=== PATIENT | female | born 1960 | race Caucasian/White ===

== ENCOUNTER → 2017-09-28 09:15 | Outpatient (REF) | payer BC, SELFPAY ==
[2017-09-28 14:13] LABS: Cholesterol 115 mg/dL (50-200); HDL Cholesterol 46 mg/dL (40-60); LDL CHOLESTEROL 56 mg/dL (<100); Triglyceride 81 mg/dL (30-150)
== END ==
LOC: NCHCN 09:15
PROVIDERS: PCP Internal Medicine; Visit Provider Internal Medicine
DX: E78.5 Hyperlipidemia, unspecified (principal)
CPT/HCPCS: 80061; 83721

== ENCOUNTER 2018-04-08 18:23 | Outpatient (REF) | payer BC, SELFPAY ==
[2018-04-08 21:57] LABS: Anion Gap 8.5 mmol/L (3-11); BUN 25 mg/dL (7-18); CO2 28.5 mmol/L (21.0-32.0); CREATININE 1.01 mg/dL (0.55-1.02); Calcium 9.2 mg/dL (8.5-10.1); Chloride 102 mmol/L (98-107); Glucose 374 mg/dL (70-100); Potassium 4.8 mmol/L (3.5-5.1); Sodium 139 mmol/L (136-145)
== END 2018-04-08 18:43 ==
LOC: NCHCN 18:23
PROVIDERS: PCP Internal Medicine; Visit Provider Internal Medicine
DX: I10 Essential (primary) hypertension (principal); E11.65 Type 2 diabetes mellitus with hyperglycemia
CPT/HCPCS: 80048

== ENCOUNTER 2018-05-11 01:14 | Outpatient (CLI) | payer SELFPAY ==
--- NOTE | 2018-05-11 09:00 | DIABASSESS_ITS ---
DESCRIPTION: Mariella Parks presents for CGM (continuous glucose monitor) Professional trial. She currently wears a Minimed insulin pump and tests her blood sugars frequently. States blood sugars are high for past few months. Her PCP suggested a trial with the CGM. ASSESSMENT/INTERVENTION: Mariella is informed of the process, limitations and benefits of CGM and she agrees to go forward with insertion. Agreement signed. Dexcom 4 Professional CGM is inserted without difficulty per protocol. She has charts to document insulin, blood sugars and food. PLAN: She will return in 1 week for removal and printing of results. She knows how to contact us with any questions or concerns regarding her CGM.
== END 2018-05-11 01:34 ==
PROVIDERS: PCP Internal Medicine; Visit Provider Dietitian, Registered
DX: E11.9 Type 2 diabetes mellitus without complications (principal); Z79.4 Long term (current) use of insulin; Z71.3 Dietary counseling and surveillance
CPT/HCPCS: 95250

== ENCOUNTER 2018-09-13 13:00 | Outpatient (REF) | payer BC, SELFPAY ==
[2018-09-13 21:28] LABS: Bilirubin Negative (Negative); Blood Large (Negative); Clarity Clear (Clear); Glucose Negative (Negative); Ketones Negative (Negative); Leukocyte Esterase Moderate (Negative); Nitrite Negative (Negative); Specific Gravity 1.015 (1.005-1.025)
[2018-09-13 21:44] LABS: HCT 44.1 % (36.0-46.0); HGB 13.7 g/dL (12.0-15.5); Mean Corp. HGB Concentration 31.1 g/dL (32.0-36.0); Mean Corpuscular Hemoglobin 31.1 pg (27.0-33.0); Platelet Count 270 x1000/uL (130-400); RBC 4.41 m/cumm (4.00-5.20); RBC Distribution Width 14.3 % (11.7-14.6); White Blood Cell Count 8.92 k/cumm (4.4-10.8)
[2018-09-13 21:57] LABS: Epithelial Cells Many HPF (Negative); RBC 20-50 (0-2); WBC >50 HPF (0-5)
[2018-09-13 21:58] LABS: Bacteria Many HPF (Negative); C & S Indicated? No/Sq. Contamination; Casts Negative LPF (Negative); Crystals Negative HPF (Negative); Mucus Negative (Negative); Other Cells Negative (Negative)
[2018-09-13 22:07] LABS: ALT 31 U/L (12-78); AST 16 U/L (15-37); Albumin 3.1 g/dL (3.4-5.0); Alkaline Phosphatase 94 U/L (46-116); Anion Gap 7.8 mmol/L (3-11); BUN 21 mg/dL (7-18); Bilirubin, Total 0.3 mg/dL (0.2-1.0); CO2 32.2 mmol/L (21.0-32.0); CREATININE 1.13 mg/dL (0.55-1.02); Calcium 9.1 mg/dL (8.5-10.1); Chloride 105 mmol/L (98-107); Creatine Kinase 36 U/L (26-192); Estimated GFR 49.46 (mL/min/1.73m2); Glucose 145 mg/dL (70-100); NT-proBNP 603 pg/mL; Potassium 4.7 mmol/L (3.5-5.1); Sodium 145 mmol/L (136-145); Total Protein 6.3 g/dL (6.4-8.2)
== END 2018-09-13 13:20 ==
LOC: NCHCN 13:00
PROVIDERS: PCP Internal Medicine; Visit Provider Internal Medicine
DX: I50.9 Heart failure, unspecified (principal); R31.9 Hematuria, unspecified
CPT/HCPCS: 80053; 82550; 85027; 81003; 81015; 83880

== ENCOUNTER 2018-09-14 12:21 | Outpatient (CLI) | payer BC, SELFPAY ==
--- NOTE | 2018-09-14 11:02 | DI.RAD_ITS ---
SYMPTOMS/DIAGNOSIS: HYPOXEMIA, SOB, CHF, R09.02, R06.02, I50.9 PA AND LATERAL CHEST: Comparison 02/26/16. The heart appears enlarged. There is prominence of the pulmonary vasculature with prominent interstitial infiltrates. No focal consolidating infiltrate is seen. No gross effusions are appreciated. Degenerative changes are seen in the spine. IMPRESSION: Cardiomegaly. Pulmonary venous congestion and interstitial prominence. The findings of suggestive of interstitial edema/CHF.
== END 2018-09-14 12:41 ==
PROVIDERS: PCP Internal Medicine; Visit Provider Internal Medicine
DX: R06.02 Shortness of breath (principal); I50.9 Heart failure, unspecified; R09.02 Hypoxemia; I51.7 Cardiomegaly
CPT/HCPCS: 71046

== ENCOUNTER 2018-09-15 00:57 | Outpatient (CLI) | payer BC, SELFPAY ==
--- NOTE | 2018-09-15 14:09 | DI.US_ITS ---
SYMPTOMS/DIAGNOSIS: GROSS HEMATURIA, N31.9 RENAL ULTRASOUND: The right kidney measures 11.3 cm and there is an apparent lower pole calculus measuring approximately 6 x 7 mm. The left kidney measures 11.6 cm and there is a region of reflectivity which would be consistent with a 7 x 5 mm calculus. There is no evidence of right or left hydronephrosis. The bladder is not distended. SUMMARY: Findings consistent with bilateral nephrolithiasis. There is no evidence of hydronephrosis. The study is limited due to the patient's body habitus and if there is any further clinical question, then further assessment with CT is suggested.
== END 2018-09-15 01:17 ==
PROVIDERS: PCP Internal Medicine; Visit Provider Internal Medicine
DX: N31.9 Neuromuscular dysfunction of bladder, unspecified (principal); N20.0 Calculus of kidney
CPT/HCPCS: 76770

== ENCOUNTER 2018-10-07 08:02 | Outpatient (CLI) | payer BC, SELFPAY | END 2018-10-07 08:22 | PROVIDERS: PCP Internal Medicine; Visit Provider Internal Medicine | DX: E27.8 Other specified disorders of adrenal gland (principal) | CPT/HCPCS: 36415; 82533 ==

== ENCOUNTER 2019-01-17 15:13 | Outpatient (REF) | payer BC, SELFPAY | END 2019-01-17 15:33 | LOC: NCHCN 15:13 | PROVIDERS: PCP Internal Medicine; Visit Provider Internal Medicine | DX: R31.9 Hematuria, unspecified (principal) | CPT/HCPCS: 87086 ==

== ENCOUNTER 2019-03-11 11:47 | Outpatient (REF) | payer BC, SELFPAY ==
[2019-03-11 20:25] LABS: HCT 45.9 % (36.0-46.0); HGB 14.7 g/dL (12.0-15.5); Mean Corpuscular Hemoglobin 31.5 pg (27.0-33.0); Mean Corpuscular Volume 98.3 fL (80-95); Mean Platelet Volume 10.5 fL (8.0-11.0); Platelet Count 297 x1000/uL (130-400); RBC 4.67 m/cumm (4.00-5.20); RBC Distribution Width 13.3 % (11.7-14.6); White Blood Cell Count 8.79 k/cumm (4.4-10.8)
[2019-03-11 21:07] LABS: Anion Gap 8.9 mmol/L (3-11); BUN 25 mg/dL (7-18); CO2 31.1 mmol/L (21.0-32.0); Calcium 9.4 mg/dL (8.5-10.1); Chloride 102 mmol/L (98-107); Estimated GFR 45.98 (mL/min/1.73m2); Glucose 137 mg/dL (74-106); Sodium 142 mmol/L (136-145); Vitamin B12 541 pg/mL (193-986)
== END 2019-03-11 12:07 ==
LOC: NCHCN 11:47
PROVIDERS: PCP Internal Medicine; Visit Provider Internal Medicine
DX: D75.89 Other specified diseases of blood and blood-forming organs (principal); E08.3 Diabetes mellitus due to underlying condition with ophthalmic complications
CPT/HCPCS: 80048; 85027; 82607

== ENCOUNTER 2019-12-17 17:05 | Observation (INO) | payer BC, SELFPAY ==
[2019-12-17] VITALS (30 sets, daily range): BP systolic 120–187; BP diastolic 72–137; PULSE 103–146; RESP 13–29; TEMP 36.3–36.4; O2SAT 94–98
--- NOTE | 2019-12-17 17:00 | DI.CT_ITS ---
EXAM: CT HEAD CERVICAL SPINE WO CLINICAL HISTORY: L weakness, slurred speech. TECHNIQUE: Imaging Protocol: Axial computed tomography images with coronal and sagittal reformatted images were created and reviewed COMPARISON: No exams were available for comparison FINDINGS: CT Head: Ventricles and Extra axial spaces: Normal in size and morphology for the patient's age. Hemorrhage: None. Cerebral parenchyma: There is an area of encephalomalacia in the left occipital lobe. No acute caryl torial infarct. Midline shift: None. Brainstem/Cerebellum: Normal. Calvarium: Normal. Visualized Paranasal sinuses/Mastoids: Clear. Soft Tissues: Unremarkable. CT Cervical Spine: The examination is limited due to patient motion artifact. Bones: No acute fracture or subluxation. There is straightening of the normal cervical lordosis. Soft Tissues: Unremarkable. Lung Apices: Clear. IMPRESSION: 1. No acute intracranial process. 2. No acute fracture or subluxation in the cervical spine. RADIATION DOSE DELIVERED: 1,653.72mGy.cm Total DLP DATA REPOSITORY: All CT scans at this facility are submitted to the National Radiology Data Registry (NRDR) Dose Index Registry (DIR) with the [employer] (ACR). RADIATION OPTIMIZATION: All CT scans at this facility use at least one of these dose optimization te chniques: automated exposure control; mA and/or kV adjustment per patient size (includes targeted exa ms where dose is matched to clinical indication); or iterative reconstruction.
--- NOTE | 2019-12-17 17:00 | RT.EKG_ITS ---
APPROVED REPORT Exam: Resting ECG Patient Location: E HR:105 bpm ECG Measurements Heart Rate 105 AXIS GA 132 P 63 QRSd 111 QRS 45 QT 343 T 30 QTc 454 Conclusion Sinus tachycardia rate> 99 Ventricular premature complex. Inferior infarct, old.
--- NOTE | 2019-12-17 17:00 | DI.RAD_ITS ---
EXAM: XR CHEST 1V IN DI DEPT CLINICAL HISTORY: hemiparesis TECHNIQUE: 2D digital imaging was performed. COMPARISON: CR XR CHEST 2V PA LATERAL from 09/14/2018 FINDINGS: MEDIASTINUM: Normal. HEART: Normal. PULMONARY VASCULATURE: Normal. LUNGS: There is blunting of the left costophrenic angle. This may represent a small effusion and/or infiltrate. PLEURAL SPACE: No pleural effusion or pneumothorax. BONE:Within normal limits for the patient's age. OTHER FINDINGS:Normal. IMPRESSION: Blunting of the left costophrenic angle. This may represent a small effusion and/or infiltrate. DATA REPOSITORY: RADIATION DOSE DELIVERED:
--- NOTE | 2019-12-17 17:14 | ED.GENADUL_ITS ---
Discharge Plan Disposition Patient Disposition: [facility] INPATIENT Condition: Stable Discharge Details Clinical Impression: CVA (cerebral vascular accident) Primary Care Provider: Gaston Castro ED Provider: Gerson Roberts Home Meds and New Rx's Prescriptions: No Action insulin aspart U-100 [Novolog U-100 Insulin aspart] 100 UNIT/1 ML solution RF: 0 pravastatin 20 MG tablet 20 mg PO DAILY RF: 0 lamotrigine 150 MG tablet 0.5 tab PO DAILY RF: 0 zonisamide 100 MG capsule 100 mg PO DAILY RF: 0 gabapentin 300 MG capsule 300 mg PO TID RF: 0 Medical Decision Making 59-year-old female who was last known well prior to 2 PM. She states she got out of the shower, felt her left arm was clumsy and unable to place a brace on her right arm. She then started to walk and with her weakness of the left leg fell forward and struck her head on the carpeted ground without loss of consciousness. A neighbor and subsequently a family member were called, were concerned for possibility of stroke and EMS was called. Repeat history taken from family notes that the symptoms began sometime after noon. Patient has history of TIA in the past. She has history of hypertension diabetes as well as seizure disorder. Glucose is approximately 288 on route via EMS. She arrives interactive and speaking with left arm and leg weakness. She is able to move against gravity but not against resistance. Right side is un remarkable. NIH stroke scale approximately 3-4. Referred for stat noncontrast CT scan of the head as well as cervical spine given her fall with axial/extension load. Her tetanus was out of date and was updated in the ED. CT scan: No acute fracture or subluxation of the cervical spine. CT of the brain without acute intracranial abnormality. See formal report. Labs: White blood cell count 11, hematocrit 47, platelets 284. BUN 41, creatinine 1.3, increased over baseline. Glucose 246. Troponin negative. Given the patient's relative contraindication of frontal head trauma, no clear last known normal, as well as relatively low NIH stroke scale, I do not feel she is a candidate for thrombolysis. Reviewed records including [facility] neurology clinic on April 2013. This notes history of epilepsy, TIAs. She will require admission for further management. Lab Data Lab results reviewed: Yes I reviewed the patient's lab results. Labs: Laboratory Results - last 24 hr 12/17/19 12/17/19 16:35 16:35 WBC 11.05 H RBC 4.83 Hgb 15.4 Hct 47.7 H MCV 98.8 H MCH 31.9 MCHC 32.3 RDW 12.7 Plt Count 284 MPV 10.3 Immature Gran % 0.5 Neutrophils % 76.4 Lymphocytes % 14.1 Monocytes % 7.3 Eosinophils % 1.3 Basophils % 0.4 Nucleated RBC % 0 Absolute Neutrophils 8.44 H Absolute Lymphocytes 1.56 Absolute Monocytes 0.81 H Absolute Eosinophils 0.14 Absolute Basophils 0.04 Sodium 137 Potassium 3.8 Chloride 99 Carbon Dioxide 30.2 Anion Gap 7.8 BUN 41 H Creatinine 1.31 H Estimated GFR/1.73 m2 41.56 Glucose 246 H Calcium 10.1 Magnesium 2.2 Total Bilirubin 0.4 AST 17 ALT 40 Alkaline Phosphatase 90 Troponin I < 0.05 Total Protein 8.0 Albumin 4.1 HPI General Mode of arrival: EMS . Date/Time Provider Initiated Documentation: 12/17/19 17:26 . Limitations to Documentation: no limitations . Information obtained by: patient and EMS . History of Present Illness 59 year old F presents to the emergency department with the chief complaint of Left arm weakness at home prior to 2 PM, described as moderate, Quality is described as constant, and is localized to the left and upper extremity. Patient started experiencing this hour(s) and it has been constant. No relieving factors improve symptom(s), No exacerbating factors reported . Patient notes other (Mild slurred speech, mild left leg weakness, frontal forehead trauma). Patient did receive the following treatments prior to arrival, none Related Data Home Medications Medication Instructions Recorded Confirmed insulin aspart U-100 [Novolog Vial] 05/22/14 pravastatin 20 mg PO DAILY tab-cap 05/22/14 12/17/19 gabapentin 300 mg PO TID 01/25/16 12/17/19 lamotrigine 0.5 tab PO DAILY 01/25/16 12/17/19 zonisamide 100 mg PO DAILY 01/25/16 12/17/19 Allergies Allergy/AdvReac Type Severity Reaction Status Date / Time No Known Allergies Allergy Unverified 12/17/19 17:19 Review of Systems Narrative: Noticed left arm clumsiness while getting out of shower. Her left leg was weak and she then fell forward and struck her head on the carpeted ground without loss of consciousness. 8 systems reviewed and otherwise negative. [facility] Social History Smoking/Tobacco Use Status: Former Tobacco Use Smoking risk assessment performed?: Yes Drug use: Never Do you feel safe in your relationship?: Yes Exam Narrative Exam Narrative: GEN: awake, alert, oriented 3. Pleasant, well groomed, interactive. HEAD: Normocephalic, abrasion to forehead and nasal bridge ENT: No midface instability or tenderness. Mucous membranes moist, oropharynx unremarkable, External ear exam unremarkable EYES: PERRL, EOMI NECK: Full ROM, no DESEAN, no menigismus CHEST/RESP: Nontender, clear to auscultation bilateral, no wheeze/rhonchi/rales CARDIOVASCULAR: RRR, no murmur, rub jaquan. 2+ Rad pulse bilateral ABDOMEN: Soft, nontender, no mass. +Bowel sounds EXT: Full ROM, no edema, no rash Neuro: Patient able to lift left arm and leg against gravity, but not against resistance. Positive pronator drift on the left. Slight slurred speech. Psych: Speech fluent with discrete slurred words at times, thoughts congruent, affect normal
[2019-12-17 17:26] LABS: Abs Immature Grans 0.05 10^3/uL (0.0-0.06); Absolute Basophil Count 0.04 10^3/uL (0.0-0.2); Absolute Eosinophil Count 0.14 10^3/uL (0.0-0.7); Absolute Lymphocyte Count 1.56 10^3/uL (1.2-3.4); Absolute Monocyte Count 0.81 10^3/uL (0.1-0.8); Basophils % 0.4; Eosinophils % 1.3; HCT 47.7 % (36.0-46.0); HGB 15.4 g/dL (11.2-15.7); Immature Grans % 0.5; Lymphocytes % 14.1; MCH 31.9 pg (27.0-33.0); MCHC 32.3 % (32.0-36.0); MCV 98.8 fL (80-95); MPV 10.3 fL (8.0-11.0); Monocytes % 7.3; Neutrophils % 76.4; Nucleated RBC 0 %; Platelet Count 284 10^3/uL (130-400); RBC 4.83 10^6/uL (3.93-5.22); RDW 12.7 % (11.7-14.6); RDW-SD 45.9 fL; WBC 11.05 10^3/uL (4.4-10.8)
[2019-12-17 17:28] LABS: Absolute Neutrophil Count 8.44 10^3/uL (1.2-6.7)
[2019-12-17] MEDS: Tetanus & Diphtheria Tox,ADULT 0.5 ML VIAL IM (17:45)
[2019-12-17] MEDS: Normal Saline 1,000 ML 150 ML IV (17:48)
[2019-12-17 17:49] LABS: ALT 40 U/L (14-59); AST 17 U/L (15-37); Albumin 4.1 g/dL (3.4-5.0); Alkaline Phosphatase 90 U/L (46-116); Anion Gap 7.8 mmol/L (3-11); BUN 41 mg/dL (7-18); Bilirubin, Total 0.4 mg/dL (0.2-1.0); CO2 30.2 mmol/L (21.0-32.0); CREATININE 1.31 mg/dL (0.55-1.02); Calcium 10.1 mg/dL (8.5-10.1); Chloride 99 mmol/L (98-107); Estimated GFR 41.56 (mL/min/1.73m2); Glucose 246 mg/dL (74-106); Magnesium 2.2 mg/dL (1.8-2.4); Potassium 3.8 mmol/L (3.5-5.1); Sodium 137 mmol/L (136-145); Troponin I < 0.05 ng/mL (<0.06)
--- NOTE | 2019-12-17 17:52 | DI.VRAD_ITS ---
PROCEDURE INFORMATION: Exam: CT Head Without Contrast Exam date and time: 12/17/2019 5:24 PM Age: 59 years old Clinical indication: Other: Hemiparesis, left weakness, slurred speech; Other: Fall TECHNIQUE: Imaging protocol: Computed tomography of the head without contrast. COMPARISON: No relevant prior studies available. FINDINGS: Brain: Mckeon-white matter differentiation is normal. There is no mass effect or midline shift. There is no intra-axial hemorrhage. There is parenchymal volume loss with compensatory dilatation of ventricles, sulci and basilar cisterns. There is no extra-axial fluid collection. Cerebral ventricles: No ventriculomegaly. Bones/joints: Unremarkable. No acute fracture. Paranasal sinuses: Visualized sinuses are unremarkable. No fluid levels. Mastoid air cells: Visualized mastoid air cells are well aerated. Soft tissues: Unremarkable. IMPRESSION: No acute intracranial abnormality. PROCEDURE INFORMATION: Exam: CT Cervical Spine Without Contrast Exam date and time: 12/17/2019 5:24 PM Age: 59 years old Clinical indication: Other: Hemiparesis, left weakness, slurred speech; Other: Fall TECHNIQUE: Imaging protocol: Computed tomography images of the cervical spine without contrast. Radiation optimization: All CT scans at this facility use at least one of these dose optimization techniques: automated exposure control; mA and/or kV adjustment per patient size (includes targeted exams where dose is matched to clinical indication); or iterative reconstruction. COMPARISON: No relevant prior studies available. FINDINGS: Vertebrae: There is straightening of cervical lordosis. There is no acute fracture or subluxation. Craniocervical junction is normal. There is normal alignment. Vertebral body heights are maintained. Facets are normally located. C2-C3: No significant disc protrusion. No severe spinal canal stenosis. No significant neural foraminal narrowing. C3-C4: No significant disc protrusion. No severe spinal canal stenosis. No significant neural foraminal narrowing. C4-C5: No significant disc protrusion. No severe spinal canal stenosis. No significant neural foraminal narrowing. C5-C6: No significant disc protrusion. No severe spinal canal stenosis. No significant neural foraminal narrowing. C6-C7: No significant disc protrusion. No severe spinal canal stenosis. No significant neural foraminal narrowing. C7-T1: No significant disc protrusion. No severe spinal canal stenosis. No significant neural foraminal narrowing. Other bones/joints: Posterior elements are intact. Soft tissues: Unremarkable. Lungs: Lung apices are normal. Other findings: Intervertebral disc spaces are normal. IMPRESSION: No acute fracture or subluxation. Dictated and Authenticated by: Cuco Salas MD. Ordering:PERFECTO Nieto MD
--- NOTE | 2019-12-17 17:57 | DI.VRAD_ITS ---
PROCEDURE INFORMATION: Exam: XR Chest, 1 View Exam date and time: 12/17/2019 5:35 PM Age: 59 years old Clinical indication: Other: Hemiparesis TECHNIQUE: Imaging protocol: XR of the chest Views: 1 view. COMPARISON: No relevant prior studies available. FINDINGS: Lungs: Unremarkable. No consolidation. Pleural space: Small left pleural effusion with atelectasis or consolidation in the left costophrenic angle. Heart/Mediastinum: Unremarkable. No cardiomegaly. Bones/joints: Unremarkable. IMPRESSION: Small left pleural effusion with atelectasis or consolidation in the left costophrenic angle. Dictated and Authenticated by: Gillian Maria MD. Ordering:PERFECTO Nieto MD
[2019-12-17] MEDS: Aspirin 325 MG TAB PO (18:37)
--- NOTE | 2019-12-17 19:39 | W.PM.HP.N ---
Date of service: 12/17/19 Time of Service: 19:39 Assessment and Plan Assessment and plan (1) CVA (cerebral vascular accident): Status: Chronic Assessment and plan: Patient has evolved into a left hemiparesis. She previously had transient ischemic events, this event appears to be enduring. The initial stat noncontrast head CT did not show any acute stroke. She needs MRI imaging which we cannot provide on the weekend. She should also have carotid and posterior circulation imaging. We will try to transfer to tertiary care center. She was on Plavix, aspirin was added in the emergency room. She was not a candidate for thrombolytics based on Dr. Roberts's assessment given the weakness of her symptoms, stroke score 4. Check hemoglobin A1c, lipid profile. (2) Diabetes mellitus: Status: Acute Assessment and plan: Patient is on an insulin infusion pump. This is managed by Dr. Castro. We did not adjust the settings. We will check AC blood sugars with moderate sliding scale aspart if needed. History of Present Illness History of Present Illness Chief Complaint: TIA/CVA Narrative: This is a 59-year-old woman with longstanding insulin-dependent diabetes and a history of stroke who presented to the emergency room yesterday with left-sided weakness and slurred speech. She was last known to be well at 2 PM on Thursday. She got out of the shower and felt her left arm was clumsy. She is unable to place a brace on her right arm using her left arm. She dropped to the bracelet and bent down to pick it up and fell forward. She suffered some rug menjivar on her forehead and the bridge of her nose. A neighbor and a family member were called. She was brought to the emergency room by EMS. In the emergency room she had a stat noncontrast head CT that did not show any significant acute intracranial abnormality. Despite the acute onset of her symptoms she had a stroke score of 4 and was not felt to be a candidate for thrombolysis. She was given aspirin and transferred to the [facility] floor on telemetry. Overnight she has more overt left hemiparesis and continued slurred speech. She is nonambulatory due to weakness of her left leg. Telemetry has not demonstrated any arrhythmia. There have been no beds at the tertiary care centers. Will look to transfer her today for MRI imaging and further studies. Review of Systems Narrative: She had been well up until 2 PM on 12/17/2019. She developed clumsiness and weakness of the left hand and weakness of the left leg. She had a prior stroke that she states primarily involved her speech. She says she has had TIAs in the past. She has had seizures in the past but none recently. She is never had cardiac problems although 1 year ago she says she had respiratory failure. A thorough work-up revealed no underlying coronary disease or chronic pulmonary disease. She has been on a diuretic since that time, ([facility]). She is not had recent chest pain or shortness of breath. No cough. She has had chronic problems with her weight. That has not changed. She is not describing any digestive problems. She does have difficulty voiding on a bedpan or commode. She does not describe any previous ambulatory dysfunction. 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 She does not work outside the home. Remote tobacco use history. Alcohol sporadic only on occasions with friends. Meds Home Medications and Allergies Home Medications Medication Instructions Recorded Confirmed Type insulin aspart U-100 [Novolog Vial] CONTINUOUS SUBCUTANEOUS INFUSION 05/22/14 History gabapentin 300 mg PO TID 01/25/16 12/17/19 History lamotrigine 0.5 tab PO DAILY 01/25/16 12/17/19 History zonisamide 100 mg PO DAILY 01/25/16 12/17/19 History atorvastatin 40 mg PO DAILY 12/17/19 12/17/19 History clopidogrel [Plavix] 75 mg PO DAILY 12/17/19 12/17/19 History dulaglutide [Trulicity] 0.75 mg SUBCUT QWEEK 12/17/19 12/17/19 History irbesartan 150 mg PO DAILY 12/17/19 12/17/19 History torsemide 30 mg PO 12/17/19 History Allergies Allergy/AdvReac Type Severity Reaction Status Date / Time No Known Allergies Allergy Unverified 12/17/19 17:19 Exam Narrative Exam Narrative: On exam she is quite markedly obese sitting in the chair semiupright. She seems fully alert and conversant though her speech is somewhat slurred. Her tongue deviates slightly to the left. Her pupils appear to be equal and her extraocular eye movements appear normal. She does have a field cut on the right which she says is chronic. Her neck is very full but I do not hear any evidence of a carotid bruit. Her heart sounds are regular, no apparent murmur. Her chest is quiet and clear bilaterally. There is no respiratory distress. Her abdomen is quite massively obese. It is overall soft and nontender to palpation in all 4 quadrants. She does not have a palpable bladder. Her lower extremities show fat replaced with no apparent edema. They appear well perfused. Motor function is markedly depressed on the left side. 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 The left leg she was unable to move on command. The right side appears to move normally with good strength. Results Labs Result diagrams: 12/17/19 16:35 12/17/19 16:35 Labs: Laboratory Results - last 24 hr 12/17/19 12/17/19 16:35 16:35 WBC 11.05 H RBC 4.83 Hgb 15.4 Hct 47.7 H MCV 98.8 H MCH 31.9 MCHC 32.3 RDW 12.7 Plt Count 284 MPV 10.3 Immature Gran % 0.5 Neutrophils % 76.4 Lymphocytes % 14.1 Monocytes % 7.3 Eosinophils % 1.3 Basophils % 0.4 Nucleated RBC % 0 Absolute Neutrophils 8.44 H Absolute Lymphocytes 1.56 Absolute Monocytes 0.81 H Absolute Eosinophils 0.14 Absolute Basophils 0.04 Sodium 137 Potassium 3.8 Chloride 99 Carbon Dioxide 30.2 Anion Gap 7.8 BUN 41 H Creatinine 1.31 H Estimated GFR/1.73 m2 41.56 Glucose 246 H Calcium 10.1 Magnesium 2.2 Total Bilirubin 0.4 AST 17 ALT 40 Alkaline Phosphatase 90 Troponin I < 0.05 Total Protein 8.0 Albumin 4.1 Last Vital Signs Temp 36.3 C L 12/17/19 17:09 Pulse 110 H 12/17/19 18:00 Resp 20 12/17/19 18:01 BP 145/87 H 12/17/19 18:00 Pulse Ox 97 12/17/19 18:01 COVID-19 Screening Have you,or household,traveled outside [place] in last 14 days?: No Had IN PERSON contact w/suspected or confirmed C-19 person: No H&P: Quality Stroke Onset of Symptoms Date: 12/17/19 Onset of Symptoms Time: 14:00
--- NOTE | 2019-12-17 19:55 | NUR.NOTE ---
Nursing Note: Swallow eval. done , patient able to swallow multiple teaspoons of water without difficulty and then multiple teaspoons of jello with no s/s of aspiration.Should be further evaluated by PT/OT.
[2019-12-17 21:12] LABS: Troponin I < 0.05 ng/mL (<0.06)
[2019-12-17] MEDS: Enoxaparin 40 MG/0.4 ML SYR SC (22:06)
[2019-12-17] MEDS: Gabapentin 300 MG CAP PO (22:06)
[2019-12-18 01:00] VITALS: BP 153/67; PULSE 89; RESP 15; TEMP 36.5; O2SAT 96
[2019-12-18] MEDS: Normal Saline 1,000 ML 150 ML IV (02:16)
[2019-12-18 03:45] VITALS: BP 122/69; PULSE 89; RESP 16; TEMP 36.6; O2SAT 94
[2019-12-18 07:33] LABS: Abs Immature Grans 0.05 10^3/uL (0.0-0.06); Absolute Basophil Count 0.06 10^3/uL (0.0-0.2); Absolute Lymphocyte Count 1.23 10^3/uL (1.2-3.4); Absolute Monocyte Count 0.92 10^3/uL (0.1-0.8); Absolute Neutrophil Count 6.76 10^3/uL (1.2-6.7); Basophils % 0.7; Eosinophils % 1.1; HCT 42.3 % (36.0-46.0); HGB 13.6 g/dL (11.2-15.7); Immature Grans % 0.5; Lymphocytes % 13.5; MCH 32.1 pg (27.0-33.0); MCHC 32.2 % (32.0-36.0); MCV 99.8 fL (80-95); MPV 10.3 fL (8.0-11.0); Monocytes % 10.1; Neutrophils % 74.1; Nucleated RBC 0 %; Platelet Count 244 10^3/uL (130-400); RBC 4.24 10^6/uL (3.93-5.22); RDW-SD 47.8 fL; WBC 9.12 10^3/uL (4.4-10.8)
--- NOTE | 2019-12-18 07:41 | DSE_ITS ---
Date of service: 12/18/19 Time of Service: 07:41 DS: Diagnosis Discharge Diagnosis (1) CVA (cerebral vascular accident): Status: Chronic (2) Diabetes mellitus: Status: Acute Discharge Plan Disposition Patient Disposition: [facility] Condition: Deteriorating Discharge Details Reason For Visit: TIA Admit Date/Time: 12/17/19 18:29 Admit Provider: Michi Harris Attending Provider: Michi Harris Primary Care Provider: Gaston Castro Hospital Course Hospital Course: Patient was admitted to observation status on 12/17/2019. Her left sided weakness evolved into a left-sided flaccid paralysis. Given the evolving nature of her symptoms she is transferred to [facility] neurology for further evaluation to include MRI and vascular imaging. Home Meds and New Rx's Prescriptions: No Action insulin aspart U-100 [Novolog U-100 Insulin aspart] 100 UNIT/1 ML solution continuous subcutaneous infusion RF: 0 lamotrigine 150 MG tablet 0.5 tab PO DAILY RF: 0 zonisamide 100 MG capsule 100 mg PO DAILY RF: 0 gabapentin 300 MG capsule 300 mg PO TID RF: 0 atorvastatin 40 mg Tablet 40 mg PO DAILY RF: 0 torsemide 10 mg Tablet 30 mg PO RF: 0 clopidogrel [Plavix] 75 mg Tablet 75 mg PO DAILY RF: 0 irbesartan 150 mg Tablet 150 mg PO DAILY RF: 0 Trulicity 0.75 mg/0.5 mL Pen Injector 0.75 mg SUBCUT QWEEK RF: 0 Discharge Instructions Activity:: Bedrest Equipment/Supplies:: No Equipment Needed Diet:: NPO Discharge Orders Discharge Orders: Discharge Order (Routine); Ordered 12/18/19 Ordered By: Michi Harris DS: Summary Status at Discharge Functional status at discharge: bed bound Overall status at discharge: patient is not back to baseline Mental Status: mental status grossly normal Speech and Movement: slurred speech Mood: anxious mood Affect: anxious affect Exam Narrative Exam Narrative: At the time of discharge patient has a left flaccid hemiparesis. Her speech is mildly dysarthric. Her mentation is clear. She has no new cardiorespiratory symptoms or findings. Psych Mental Status: mental status grossly normal Speech and Movement: slurred speech Mood: anxious mood Affect: anxious affect DS: Data Vitals/I&O Vitals and I&O: Vital Signs Temperature 36.6 C 12/18/19 03:45 Temperature Source Skin 12/18/19 03:45 Pulse 89 12/18/19 03:45 Pulse Rhythm Regular 12/18/19 01:26 EST Pulse 112 H 12/17/19 19:50 Respiratory Rate 16 12/18/19 03:45 Respiratory Effort Non-Labored 12/18/19 01:26 EST Respiratory Depth Normal 12/18/19 01:26 EST Respiratory Pattern Normal 12/18/19 01:26 EST Blood Pressure 122/69 12/18/19 03:45 Blood Pressure Mean 109 12/17/19 19:45 Blood Pressure Position Supine 12/17/19 17:09 Pulse Oximetry 94 12/18/19 03:45 Oxygen Delivery Method Room Air 12/18/19 03:45 Oxygen Flow Rate 0 12/18/19 03:45 Pain Level 0 12/18/19 03:45 Intake & Output 12/17/19 12/17/19 12/18/19 11:59 23:59 10:59 Intake Total 1000 / 1000 Balance 1000 / 1000 Weight 127.006 kg Intake: IV 1000 / 1000 Data Completed and Pending Labs on day of discharge: Labs from last 24 hours 12/18/19 12/18/19 12/18/19 06:53 06:53 06:53 WBC 9.12 RBC 4.24 Hgb 13.6 Hct 42.3 MCV 99.8 H MCH 32.1 MCHC 32.2 RDW 13.0 Plt Count 244 MPV 10.3 Immature Gran % 0.5 Neutrophils % 74.1 Lymphocytes % 13.5 Monocytes % 10.1 Eosinophils % 1.1 Basophils % 0.7 Nucleated RBC % 0 Absolute Neutrophils 6.76 H Absolute Lymphocytes 1.23 Absolute Monocytes 0.92 H Absolute Eosinophils 0.10 Absolute Basophils 0.06 Sodium Pending Potassium Pending Chloride Pending Carbon Dioxide Pending Anion Gap Pending BUN Pending Creatinine Pending Estimated GFR/1.73 m2 Pending Glucose Pending Hemoglobin A1c Pending Calcium Pending Magnesium Total Bilirubin AST ALT Alkaline Phosphatase Troponin I Total Protein Albumin Triglycerides Pending Total Cholesterol Pending LDL Cholesterol, Calc Pending HDL Cholesterol Pending COVID-19 PCR Nasopharyn COVID-19 PCR SARS-CoV-2 Source SARS-CoV-2 (PCR) Ref Test Perform Site 12/17/19 12/17/19 12/17/19 20:45 18:40 16:35 WBC 11.05 H RBC 4.83 Hgb 15.4 Hct 47.7 H MCV 98.8 H MCH 31.9 MCHC 32.3 RDW 12.7 Plt Count 284 MPV 10.3 Immature Gran % 0.5 Neutrophils % 76.4 Lymphocytes % 14.1 Monocytes % 7.3 Eosinophils % 1.3 Basophils % 0.4 Nucleated RBC % 0 Absolute Neutrophils 8.44 H Absolute Lymphocytes 1.56 Absolute Monocytes 0.81 H Absolute Eosinophils 0.14 Absolute Basophils 0.04 Sodium Potassium Chloride Carbon Dioxide Anion Gap BUN Creatinine Estimated GFR/1.73 m2 Glucose Hemoglobin A1c Calcium Magnesium Total Bilirubin AST ALT Alkaline Phosphatase Troponin I < 0.05 Total Protein Albumin Triglycerides Total Cholesterol LDL Cholesterol, Calc HDL Cholesterol COVID-19 PCR Cancelled Nasopharyn COVID-19 PCR Cancelled SARS-CoV-2 Source Pending SARS-CoV-2 (PCR) Pending Ref Test Perform Site Cancelled 12/17/19 16:35 WBC RBC Hgb Hct MCV MCH MCHC RDW Plt Count MPV Immature Gran % Neutrophils % Lymphocytes % Monocytes % Eosinophils % Basophils % Nucleated RBC % Absolute Neutrophils Absolute Lymphocytes Absolute Monocytes Absolute Eosinophils Absolute Basophils Sodium 137 Potassium 3.8 Chloride 99 Carbon Dioxide 30.2 Anion Gap 7.8 BUN 41 H Creatinine 1.31 H Estimated GFR/1.73 m2 41.56 Glucose 246 H Hemoglobin A1c Calcium 10.1 Magnesium 2.2 Total Bilirubin 0.4 AST 17 ALT 40 Alkaline Phosphatase 90 Troponin I < 0.05 Total Protein 8.0 Albumin 4.1 Triglycerides Total Cholesterol LDL Cholesterol, Calc HDL Cholesterol COVID-19 PCR Nasopharyn COVID-19 PCR SARS-CoV-2 Source SARS-CoV-2 (PCR) Ref Test Perform Site [facility] Medical History (Updated 12/18/19 @ 06:56 by Michi Harris MD) CVA (cerebral vascular accident) hx TIAs, CVA 2015 involving speech Diabetes mellitus Insulin pump Diplopia Hepatitis B Obesity Seizure disorder Surgical History (Updated 12/17/19 @ 19:44 by Michi Harris MD) History of appendectomy Hx of tonsillectomy Social History (Updated 12/18/19 @ 06:49 by Michi Harris MD) Smoking/Tobacco Use Status: Former Tobacco Use Smoking risk assessment performed?: Yes Alcohol Intake: current Alcohol Intake frequency: holidays/special occasions only Drug use: Never Household members: spouse Do you feel safe in your relationship?: Yes Additional Social history: lives with her . She does not work outside the home. Remote tobacco use history. Alcohol sporadic only on occasions with friends.
[2019-12-18 07:44] LABS: Anion Gap 7.1 mmol/L (3-11); BUN 27 mg/dL (7-18); CO2 27.9 mmol/L (21.0-32.0); CREATININE 0.85 mg/dL (0.55-1.02); Calcium 8.8 mg/dL (8.5-10.1); Calculated LDL 41 mg/dL (<100); Chloride 104 mmol/L (98-107); Cholesterol 100 mg/dL (<200); Glucose 194 mg/dL (74-106); HDL Cholesterol 39 mg/dL (40-60); Sodium 139 mmol/L (136-145); Triglyceride 100 mg/dL (<150)
[2019-12-18 07:47] VITALS: BP 136/74; PULSE 107; RESP 20; TEMP 36.7; O2SAT 96
[2019-12-18] MEDS: Normal Saline 1,000 ML 100 ML IV (07:51)
[2019-12-18 08:12] LABS: Hemoglobin A1C 8.1 % (<5.7)
--- NOTE | 2019-12-18 08:30 | DI.VRAD_ITS ---
PROCEDURE INFORMATION: Exam: XR Chest, 1 View Exam date and time: 12/18/2019 8:13 AM Age: 59 years old Clinical indication: Other: Hemiparesis TECHNIQUE: Imaging protocol: XR of the chest Views: 1 view. COMPARISON: CR XR CHEST 1V IN DI DEPT 12/17/2019 5:31 PM FINDINGS: Tubes, catheters and devices: Overlying EKG wires Lungs: Opacities in both bases may represent atelectasis or pneumonia.. Pleural space: There may be small left pleural effusion Heart/Mediastinum: Cardiomegaly Bones/joints: Unremarkable. IMPRESSION: Opacities in both bases may represent atelectasis or pneumonia.. Dictated and Authenticated by: Luda Meade MD. Ordering:PERFECTO Nieto MD
--- NOTE | 2019-12-18 08:42 | NUR.NOTE ---
report called to Caryn BARAHONA. EMS is in route to [facility]. Nursing Note:
[2019-12-18 10:40] VITALS: PULSE 105
--- NOTE | 2019-12-18 17:00 | DI.RAD_ITS ---
EXAM: XR PORTABLE CHEST AP CLINICAL HISTORY: hemiparesis TECHNIQUE: 2D digital imaging was performed. COMPARISON: CR,XR XR CHEST 1V IN DI DEPT from 12/17/2019 FINDINGS: MEDIASTINUM: Normal. HEART: Normal. PULMONARY VASCULATURE: Normal. LUNGS: Mild atelectasis in the lung bases. No focal consolidating infiltrate. PLEURAL SPACE: Blunting of the left costophrenic angle which may reflect a small pleural effusion. N o right pleural effusion or pneumothorax. BONE:Within normal limits for the patient's age. OTHER FINDINGS:Normal. IMPRESSION: Basilar atelectasis. Possible small left pleural effusion. DATA REPOSITORY: RADIATION DOSE DELIVERED:
[2019-12-19 14:34] LABS: SARS-CoV-2 RNA Not Detected (NotDetected); SARS-CoV-2 RNA Source Nasopharynx
== END 2019-12-18 08:27 | disposition short-term general hospital (02) ==
LOC: ER 18:39 → MS 20:07
PROVIDERS: Admitting Provider Family Medicine; Emergency Provider Emergency Medicine; PCP Internal Medicine; Visit Provider Family Medicine
DX: I63.9 Cerebral infarction, unspecified (principal); G81.04 Flaccid hemiplegia affecting left nondominant side; R47.1 Dysarthria and anarthria; E11.9 Type 2 diabetes mellitus without complications; Z79.4 Long term (current) use of insulin; Z96.41 Presence of insulin pump (external) (internal); Z86.73 Personal history of transient ischemic attack (TIA), and cerebral infarction without residual deficits; Z11.59 Encounter for screening for other viral diseases
CPT/HCPCS: 36415; 36416; 80048; 80053; 80061; 82962; 90471; 93005; 96360; 96361; 99217; 99220; 99285; J1650; U0003; 70450; 71045; 72125; 83036; 83735; 84484; 85025; 93010; G0378

== ENCOUNTER 2020-07-19 03:56 | Outpatient (CLI) | payer BC, SELFPAY ==
--- NOTE | 2020-07-27 08:41 | ZIOP_ITS ---
Date of service: 07/27/20 Time of Service: 08:41 14 Day Consumer Relations Specialist Referring Provider:: Boogie Indications:: CVA Note: This is a 14-day monitor order for indication of CVA. ?The patient was in normal sinus rhythm for the majority the recording with an average heart rate of 93 bpm. ?There were 3 episodes of SVT with the longest lasting 15 beats. None of these were symptomatic. ?There were no episodes of ventricular tachycardia and rare PACs/PVCs. ?There were no episodes of atrial fibrillation, no pauses greater than 3 seconds and no evidence of high degree heart block. ?There were no patient triggered events.
--- NOTE | 2020-08-07 15:09 | W.ZIOMONITOR ---
Date of service: 08/07/20 Time of Service: 15:09 14 Day Ventilating Expert Referring Provider:: Jeanette Tyler Indications:: cerebral infarction Note: This is a 14-day event monitor ordered for indication of cerebral infarction Predominant rhythm was sinus. Average heart rate was 93, minimum 66 maximum 137 There were rare ventricular ectopic beats. There was 1 ventricular triplet There were rare atrial premature beats. There were a total of 8 self-limited atrial runs, the longest of which was 15 beats in duration There was no atrial fibrillation, no high-grade AV block, no pauses greater than 3 seconds No patient symptoms were reported
== END 2020-07-19 03:57 | disposition home or self-care (01) ==
LOC: RT 03:56
PROVIDERS: PCP Internal Medicine; Visit Provider Psychiatry & Neurology Neurology
DX: I63.9 Cerebral infarction, unspecified (principal)
CPT/HCPCS: 93246

== ENCOUNTER 2020-11-20 14:39 | Outpatient (REF) | payer BC, SELFPAY | END 2020-11-20 14:40 | disposition home or self-care (01) | LOC: NCHCN 14:39 | PROVIDERS: PCP Internal Medicine; Visit Provider Internal Medicine | DX: N39.0 Urinary tract infection, site not specified (principal) | CPT/HCPCS: 87077; 87086; 87186 ==

== ENCOUNTER 2020-11-23 15:48 | Outpatient (REF) | payer BC, SELFPAY | END 2020-11-23 15:49 | disposition home or self-care (01) | LOC: NCHCN 15:48 | PROVIDERS: PCP Internal Medicine; Visit Provider Internal Medicine | DX: N39.0 Urinary tract infection, site not specified (principal) | CPT/HCPCS: 87086 ==

== ENCOUNTER 2021-01-14 11:31 | Outpatient (REF) | payer BC, SELFPAY ==
[2021-01-14 16:43] LABS: Anion Gap 9.8 mmol/L (3-11); BUN 21 mg/dL (7-18); CO2 26.2 mmol/L (21.0-32.0); CREATININE 0.9 mg/dL (0.55-1.02); Calcium 9.7 mg/dL (8.5-10.1); Chloride 110 mmol/L (98-107); Glucose 63 mg/dL (74-106); Potassium 3.9 mmol/L (3.5-5.1); Sodium 146 mmol/L (136-145)
== END 2021-01-14 11:32 | disposition home or self-care (01) ==
LOC: NCHCN 11:31
PROVIDERS: PCP Internal Medicine; Visit Provider Internal Medicine
DX: I10 Essential (primary) hypertension (principal); E08.3 Diabetes mellitus due to underlying condition with ophthalmic complications
CPT/HCPCS: 80048

== ENCOUNTER 2021-06-29 16:20 | Outpatient (REF) | payer BC, SELFPAY | END 2021-06-29 16:21 | disposition home or self-care (01) | LOC: LBN 16:20 | PROVIDERS: PCP Internal Medicine; Visit Provider Nurse Practitioner Family | DX: R31.9 Hematuria, unspecified (principal) | CPT/HCPCS: 87086 ==

== ENCOUNTER 2022-02-13 11:34 | Outpatient (REF) | payer BC, SELFPAY ==
[2022-02-13 14:57] LABS: Anion Gap 6.6 mmol/L (3-11); BUN 17 mg/dL (7-18); CO2 30.4 mmol/L (21.0-32.0); CREATININE 0.8 mg/dL (0.55-1.02); Calcium 9.8 mg/dL (8.5-10.1); Calculated LDL 77 mg/dL (<100); Chloride 109 mmol/L (98-107); Cholesterol 151 mg/dL (<200); Estimated GFR 83.26 (mL/min/1.73m2); Glucose 51 mg/dL (74-106); HDL Cholesterol 64 mg/dL (40-60); Potassium 4.2 mmol/L (3.5-5.1); Sodium 146 mmol/L (136-145); Triglyceride 50 mg/dL (<150)
== END 2022-02-13 11:35 | disposition home or self-care (01) ==
LOC: NCHCN 11:34
PROVIDERS: PCP Internal Medicine; Visit Provider Internal Medicine
DX: I10 Essential (primary) hypertension (principal); E78.5 Hyperlipidemia, unspecified; E08.3 Diabetes mellitus due to underlying condition with ophthalmic complications
CPT/HCPCS: 80048; 80061

== ENCOUNTER 2022-03-17 21:04 | Outpatient (REF) | payer BC, SELFPAY ==
[2022-03-17 21:23] LABS: Bilirubin Negative (Negative); Blood Moderate (Negative); Clarity Clear (Clear); Glucose Negative (Negative); Ketones Negative (Negative); Leukocyte Esterase Moderate (Negative); Nitrite Positive (Negative); Specific Gravity 1.025 (1.005-1.025); Urobilinogen 0.2 EU/dL (Up TO 0.2)
[2022-03-17 21:39] LABS: Bacteria Many HPF (Negative); C & S Indicated? Yes; Casts Negative LPF (Negative); Crystals Negative HPF (Negative); Epithelial Cells Few HPF (Negative); Mucus Negative (Negative); Other Cells Negative (Negative); RBC >50 HPF (0-2); WBC >50 HPF (0-5)
== END 2022-03-17 21:05 | disposition home or self-care (01) ==
LOC: NCHCN 21:04
PROVIDERS: PCP Internal Medicine; Visit Provider Internal Medicine
DX: Z87.440 Personal history of urinary (tract) infections (principal); R82.998 Other abnormal findings in urine
CPT/HCPCS: 87077; 81003; 81015; 87086; 87186

== ENCOUNTER 2022-04-15 15:11 | Outpatient (REF) | payer BC, SELFPAY ==
--- NOTE | 2022-04-15 13:45 | PAPFT_PTH ---
PATIENT: Mariella Parks LOC: [facility] U#:[id number] AGE/SX: 62/F ROOM: RE04/15/[address]: Madison Nugent MD : [id number] BED: DIS: 04/15/2022 SPEC #: [id number] RECD: 04/15/22 18:08 STATUS: TANA REQ #: [id number] SUJIT: 04/15/22 13:[address]: Madison Nugent DEPT: [facility] Cytology RECD BY: Tracey Robertson ENTERED: 04/15/22 18:08 SP TYPE: PAPFT OTHR DR: Gaston Castro Tissues: 1 - CX/ENDOCX FOR PAP SMEARS Procedures: PAP THIN PREP/[facility] Screening HPV DNA PROBE Comments: [id number]
== END 2022-04-15 15:12 | disposition home or self-care (01) ==
LOC: LBN 15:11
PROVIDERS: PCP Internal Medicine; Visit Provider Obstetrics & Gynecology
DX: Z12.4 Encounter for screening for malignant neoplasm of cervix (principal); Z11.51 Encounter for screening for human papillomavirus (HPV)
CPT/HCPCS: 88142; 87624

== ENCOUNTER 2022-05-15 12:46 | Outpatient (REF) | payer BC, SELFPAY | END 2022-05-15 12:47 | disposition home or self-care (01) | LOC: NCHCN 12:46 | PROVIDERS: PCP Internal Medicine; Visit Provider Internal Medicine | DX: E11.9 Type 2 diabetes mellitus without complications (principal); I10 Essential (primary) hypertension | CPT/HCPCS: 83036 ==